=== PATIENT | female | born 1990 | race Caucasian/White ===

== ENCOUNTER 2016-04-25 15:23 | Emergency (ER) | payer MEDICAID, OTHER ==
[~2016-04-25] VITALS: Ht 160 cm; Wt 80.0 kg
[~2016-04-25 15:23] MED LIST: IBUP600 PO; OXYC1SOL5 PO; PREN0.01 PO
[2016-04-25 15:37] VITALS: BP 137/71; PULSE 77; RESP 16; TEMP 97.5; O2SAT 98
[2016-04-25] MEDS ORDERED: PROZ20CA11 PO (16:23)
[2016-04-25] MEDS ORDERED: LIPI40TA PO (16:23)
[2016-04-25] MEDS ORDERED: MOBI7.5T PO (16:23)
[2016-04-25] MEDS ORDERED: ZETI10TA5 PO (16:23)
[2016-04-25] MEDS ORDERED: SODIUM CHLOR 0.9% 1000 ML INJ 1,000 ML IV ONE (16:41)
[2016-04-25] MEDS ORDERED: SODIUM CHLORIDE 0.9% FLUSH 5 ML FLUSH IVF PRN (16:45)
[2016-04-25 16:55] VITALS: O2SAT 99
[2016-04-25 16:56] LABS: BLOOD, URINE NEG (NEG); GLUCOSE,URINE NEG (NEG); KETONE, URINE 15 mg/dL (NEG); NITRITE,URINE NEG (NEG)
[2016-04-25 16:57] LABS: AUTOMATED NEUTROPHIL # 10.1 TH/MM3 (1.8-7.7); BASOPHIL # 0.3 TH/MM3 (0-0.2); BASOPHIL % 2.2 % (0.0-2.0); EOSINOPHIL % 0.4 % (0.0-4.0); HEMATOCRIT 41.1 % (35.0-46.0); LYMPHOCYTE # 1.5 TH/MM3 (1.0-4.8); MEAN CORPUSCULAR HEMOGLOBIN 29.2 PG (27.0-34.0); MEAN CORPUSCULAR HGB CONC 33.9 % (32.0-36.0); MONO % 4.1 % (0.0-8.0); NEUT % 81.3 % (16.0-70.0); PLATELET COUNT 210 TH/MM3 (150-450); RED BLOOD COUNT 4.77 MIL/MM3 (4.00-5.30); RED CELL DISTRIBUTION WIDTH 12.9 % (11.6-17.2); WHITE BLOOD COUNT 12.4 TH/MM3 (4.0-11.0)
[2016-04-25] MEDS ORDERED: PROCHLORPERAZINE INJ 10 MG/2 ML VIAL IVP ONE (17:00)
[2016-04-25] MEDS ORDERED: diphenhydrAMINE HCL 50 MG/ML VIAL IVP ONE (17:00)
[2016-04-25] MEDS ORDERED: KETOROLAC TROMETHAMINE 30 MG/ML (IVP) VIAL IVP ONE (17:00)
[2016-04-25 17:03] LABS: HEMO FLAGS DIFF FINAL
[2016-04-25 17:05] LABS: CHLORIDE 106 MEQ/L (98-107); SODIUM (NA) 140 MEQ/L (136-145)
[2016-04-25 17:06] LABS: COMMENT (UR) CULT NOT INDICATED; CULTURE IF INDICATED CULT NOT INDICATED; METHOD OF COLLECTION CLEAN CATCH; MUCUS URINE FEW /lpf (OCC); RBC, URINE 0-3 /hpf (0-3); SQUAMOUS EPITHELIAL CELL URINE > 8 /hpf (0-5); URINE COLOR YELLOW (YELLW/STRAW)
[2016-04-25 17:09] LABS: ANION GAP 7 MEQ/L (5-15); BICARBONATE 27.1 MEQ/L (21.0-32.0); BLOOD UREA NITROGEN 13 MG/DL (7-18)
[2016-04-25 17:11] LABS: ALT (GPT) 97 U/L (10-53)
[2016-04-25 17:12] LABS: AST (GOT) 80 U/L (15-37); GLOMERULAR FILTRATION RATE 102 ML/MIN (>89)
[2016-04-25 17:13] LABS: TOTAL BILIRUBIN ADULT 0.5 MG/DL (0.2-1.0)
[2016-04-25 17:14] LABS: ALKALINE PHOSPHATASE 71 U/L (45-117)
[2016-04-25 17:17] LABS: POTASSIUM 5.9 MEQ/L (3.5-5.1)
--- NOTE | 2016-04-25 17:19 | PD ---
HPI Chief Complaint: Headache Time Seen by Provider: 16:15 Travel History International Travel<30 days: No Contact w/Intl Traveler<30days: No Traveled to known affect area: No History of Present Illness HPI Patient 26-year-old female with a history of recurrent headaches never had to come to the emergency department for headache before presents today with a bifrontal headache since approximately midnight. Patient states that for her headache is had also been accompanied with some nausea and vomiting. Patient denies any increased pain over previous headaches. She states she took ibuprofen at home without any significant relief and she vomited and thinks might have vomited up the pills as well. Patient denies any focal weakness visual difficulties or neck stiffness. PFSH Past Medical History Autoimmune Disease: No Anxiety: No Cardiovascular Problems: Yes (HIGH CHOLESTEROL) High Cholesterol: Yes Diminished Hearing: No Genitourinary: No Musculoskeletal: No Neurologic: No Psychiatric: No Respiratory: No Immunizations Current: Yes ?: Not LMP: on birthcontrol : 1 Para: 0 Miscarriage: 0 : 0 Past Surgical History Abdominal Surgery: Yes (REMOVED GALLSTONES AND STENT PLACE IN JAN 2008, REMOVED STENT 05/09/08) Appendectomy: No Cholecystectomy: Yes Social History Alcohol Use: No Tobacco Use: No Substance Use: No (HX OF DRUG ABUSE) Allergies-Medications (Allergen,Severity, Reaction): Coded Allergies: No Known Allergies (Verified , 04/25/16) Reported Meds & Prescriptions Reported Meds & Active Scripts Active Zofran Odt (Ondansetron Odt) 4 Mg Tab 4 Mg SL Q6HR PRN Reported Mobic (Meloxicam) 7.5 Mg Tab 7.5 Mg PO DAILY Zetia (Ezetimibe) 10 Mg Tab 10 Mg PO DAILY Lipitor (Atorvastatin Calcium) 40 Mg Tab 40 Mg PO HS Prozac (Fluoxetine HCl) 20 Mg Cap 60 Mg PO DAILY Review of Systems Except as stated in HPI: all other systems reviewed are Neg Physical Exam Narrative GENERAL: Well-developed well-nourished no apparent distress SKIN: Warm and dry. HEAD: Atraumatic. Normocephalic. EYES: Pupils equal and round. No scleral icterus. No injection or drainage. Normal fundi bilaterally ENT: No nasal bleeding or discharge. Mucous membranes pink and moist. NECK: Trachea midline. No JVD. Kernig's emergency signs negative CARDIOVASCULAR: Regular rate and rhythm. No murmur appreciated. RESPIRATORY: No accessory muscle use. Clear to auscultation. Breath sounds equal bilaterally. GASTROINTESTINAL: Abdomen soft, non-tender, nondistended. Hepatic and splenic margins not palpable. MUSCULOSKELETAL: No obvious deformities. No clubbing. No cyanosis. No edema. NEUROLOGICAL: Awake and alert. Cranial nerves II through XII are grossly intact and nonfocal, 5 out of 5 strength in all 4 extremities.. PSYCHIATRIC: Appropriate mood and affect; insight and judgment normal. Data Data Last Documented VS Vital Signs Date Time Temp Pulse Resp B/P Pulse Ox O2 Delivery O2 Flow Rate FiO2 04/25/16 16:55 99 Room Air 04/25/16 15:37 97.5 77 16 137/71 Orders Urinalysis - C+S If Indicated (04/25/16 16:26) Ed Urine Pregnancytest Poc (04/25/16 16:26) Complete Blood Count With Diff (04/25/16 16:41) Comprehensive Metabolic Panel (04/25/16 16:41) Ecg Monitoring (04/25/16 16:41) Iv Access Insert/Monitor (04/25/16 16:41) Oximetry (04/25/16 16:41) Sodium Chloride 0.9% Flush (Ns Flush) (04/25/16 16:45) Sodium Chlor 0.9% 1000 Ml Inj (Ns 1000 M (04/25/16 16:41) Ketorolac Inj (Toradol Inj) (04/25/16 17:00) Prochlorperazine Inj (Compazine Inj) (04/25/16 17:00) Diphenhydramine Inj (Benadryl Inj) (04/25/16 17:00) Labs Laboratory Tests Test 04/25/16 16:50 White Blood Count 12.4 TH/MM3 Red Blood Count 4.77 MIL/MM3 Hemoglobin 13.9 GM/DL Hematocrit 41.1 % Mean Corpuscular Volume 86.0 FL Mean Corpuscular Hemoglobin 29.2 PG Mean Corpuscular Hemoglobin 33.9 % Concent Red Cell Distribution Width 12.9 % Platelet Count 210 TH/MM3 Mean Platelet Volume 7.7 FL Neutrophils (%) (Auto) 81.3 % Lymphocytes (%) (Auto) 12.0 % Monocytes (%) (Auto) 4.1 % Eosinophils (%) (Auto) 0.4 % Basophils (%) (Auto) 2.2 % Neutrophils # (Auto) 10.1 TH/MM3 Lymphocytes # (Auto) 1.5 TH/MM3 Monocytes # (Auto) 0.5 TH/MM3 Eosinophils # (Auto) 0.0 TH/MM3 Basophils # (Auto) 0.3 TH/MM3 CBC Comment DIFF FINAL Differential Comment Urine Collection Type CLEAN CATCH Urine Color YELLOW Urine Turbidity CLEAR Urine pH 6.0 Urine Specific [place] 1.027 Urine Protein TRACE mg/dL Urine Glucose (UA) NEG mg/dL Urine Ketones 15 mg/dL Urine Occult Blood NEG Urine Nitrite NEG Urine Bilirubin NEG Urine Leukocyte Esterase NEG Urine RBC 0-3 /hpf Urine WBC 3-5 /hpf Urine Squamous Epithelial > 8 /hpf Cells Urine Mucus FEW /lpf Microscopic Urinalysis Comment CULT NOT INDICATED Urine Collection Time 16:50 Sodium Level 140 MEQ/L Potassium Level 5.9 MEQ/L Chloride Level 106 MEQ/L Carbon Dioxide Level 27.1 MEQ/L Anion Gap 7 MEQ/L Blood Urea Nitrogen 13 MG/DL Creatinine 0.70 MG/DL Estimat Glomerular Filtration 102 ML/MIN Rate Random Glucose 107 MG/DL Calcium Level 9.2 MG/DL Total Bilirubin 0.5 MG/DL Aspartate Amino Transf 80 U/L (AST/SGOT) Alanine Aminotransferase 97 U/L (ALT/SGPT) Alkaline Phosphatase 71 U/L Total Protein 9.7 GM/DL Albumin 3.9 GM/DL [facility] Medical Decision Making Medical Screen Exam Complete: Yes Emergency Medical Condition: Yes Differential Diagnosis Headache, migraine, meningitis unlikely, subarachnoid hemorrhage unlikely, , electrolyte abnormality. Narrative Course Patient roomed in emergency department, after confirming negative status. UPT she was given Benadryl Compazine and Toradol. Patient had near complete resolution of her headache and states she felt tired and wanted to go home. Her labs reviewed that she does have an elevated potassium on a hemolyzed specimen. She also has some mild elevations in LFTs. She does have a history of hepatitis and when delving further into this history patient does have a history of drug abuse in the past as well. She states she's been clean for 8 months and has not been using any medications. Discussed with her that currently there is no indication for CT scan or further workup. I taken her temperature again prior to discharge 97.5. She has no nuchal symptoms or signs. She appears well and nontoxic. Discussed with mother and patient if the patient should spike fever or have any concerns and could consider doing spinal tap in the future hour there is no indication to do one now as the patient has been clean and is afebrile. Diagnosis Primary Impression: Headache Qualified Code: R51 - Nonintractable headache, unspecified chronicity pattern , unspecified headache type Med/Other Pt SpecificInfo: Prescription(s) given Scripts Ondansetron Odt (Zofran Odt)4 Mg Tab4 Mg SL Q6HR PRN (Nausea/Vomiting) #30 TAB Ref 0 Prov:Pepe Rizo MD 04/25/16 Disposition: 01 DISCHARGE HOME Condition: Stable Pepe Rizo MD Apr 25, 2016 17:18
[2016-04-25] MEDS ORDERED: ZOFR4TAB3 SL (17:34)
== END 2016-04-25 17:55 | disposition home or self-care (01) ==
LOC: PHED 15:23
DX: R51 Headache (principal); R11.2 Nausea with vomiting, unspecified; E78.00 Pure hypercholesterolemia, unspecified
CPT/HCPCS: 80053; 81001; 84703; 85025; 96374; 96375; 99284; J0780; J1200; J1885; J7030